=== PATIENT | female | born 1965 | race Caucasian/White ===

== ENCOUNTER 2021-01-29 08:11 | Day surgery (SDC) | payer OTHER ==
[~2021-01-29] VITALS: Ht 170.2 cm; Wt 81.8 kg
--- NOTE | ~2021-01-29 | HP ---
PATIENT: CAYLA AVILA MEDICAL RECORD: [id number] ACCOUNT: [id number] LOCATION:[facility] : 65 ADMISSION DATE: 01/29/21 PCP: KEVIN TORRES HISTORY AND PHYSICAL EXAMINATION CHIEF COMPLAINT: Iron-deficiency anemia. HISTORY OF PRESENT ILLNESS: The patient has arteriovenous malformation of the sigmoid colon. I have been asked to go and ablate this. The patient has noted some bright red blood per rectum. ALLERGIES: No known drug allergies. HOME MEDICATIONS: Have been reviewed. PAST MEDICAL AND SURGICAL HISTORY: Hypercholesterolemia, gastroesophageal reflux, rheumatoid arthritis, hypertension, COPD. SOCIAL HISTORY: Nonsmoker. PHYSICAL EXAMINATION: GENERAL: The patient does not appear acutely ill. She does appear chronically ill. VITAL SIGNS: Reviewed. EARS: External ears appear normal. EYES: Extraocular movements are intact. NECK: Trachea is midline. CHEST: No intercostal retractions. PULMONARY: Nonlabored. No stridor. IMPRESSION: Bleeding arteriovenous malformation of the sigmoid colon. PLAN: Colonoscopy with argon plasma coagulation therapy to the arteriovenous malformation. TRANSINT:[id number] Voice Confirmation ID: [id number] DOCUMENT ID: [id number] SHERYL OLIVAS MD CC: JEFF MART MD and KEVIN TORRES MD [id number] DICTATION DATE: 01/29/21 1044 CHIEF STRATEGY OFFICER: 01/29/21 1057 REG [facility] [address] [place] [address]
--- NOTE | ~2021-01-29 | OP ---
PATIENT NAME: CAYLA AVILA MEDICAL RECORD: [id number] :65 LOCATION:D.OPS ADMISSION DATE: SURGEON: SHERYL OLIVAS MD DATE OF OPERATION: 01/29/2021 PREOPERATIVE DIAGNOSES: 1. Iron deficiency anemia. 2. Arteriovenous malformations of the colon. POSTOPERATIVE DIAGNOSES: 1. Iron deficiency anemia. 2. Arteriovenous malformations of the colon. PROCEDURE: 1. Total colonoscopy to cecum. 2. Argon plasma coagulation ablation of arteriovenous malformation. SURGEON: Sheryl Olivas MD JAMB CUTTER: None. BLOOD LOSS: Minimal. ANESTHESIA: IV sedation. COMPLICATIONS: None. The risks, possible complications, and alternatives of the procedure were explained to the patient. She elects to proceed. ENDOSCOPIC COURSE: The patient was conveyed to the endoscopy suite electively on 01/29/2021. IV sedation was induced by the anesthesia staff. The patient was placed in the Pollard position. Digital rectal examination was performed. A colonoscope was inserted through the anus. It was easily advanced to the cecum. The prep was adequate. I slowly withdrew the endoscope. The pullback was greater than 13-minute pullback. Some erythematous areas which might be consistent with arteriovenous malformations were noted in the sigmoid colon. These were ablated with the argon plasma equal opportunity counselor utilizing the right colon setting in the forced mode. A retroflexed view was obtained in the rectum. There was a large anal papilla, which was ablated with the argon plasma equal opportunity counselor. I then unretroflexed the scope and removed it under direct vision. There is no need for the patient to see me in the office as no biopsies were obtained. If she develops new arteriovenous malformations I will be happy to see her to ablate these as well. TRANSINT:[id number] Voice Confirmation ID: [id number] DOCUMENT ID: [id number] OPERATIVE REPORT [id number] CAYLA AVILA SHERYL OLIVAS MD CC: JEFF MART MD and KEVIN TORRES MD [id number] DICTATION DATE: 01/29/21 1114 NURSE DISCHARGE PLANNER: 01/29/21 1152 REG [facility] [address] [place] [address]
[2021-01-29 08:45] LABS: HEMATOCRIT 39.4 % (36.0-48.0); HEMOGLOBIN 13.1 g/dL (12-16); IMMATURE GRANULOCYTES 0.7 % (0-5); LYMPHOCYTE ABS# 1.82 10x3/uL (1.18-3.74); LYMPHOCYTES 30.1 % (15-50); MCH 27.4 pg (26.0-34.0); MCHC 33.2 g/dL (31.0-37.0); MCV 82.4 fL (80.0-100.0); MEAN PLATELET VOLUME 9.5 fL (7.4-10.4); MONOCYTES 7.3 % (2-11); NEUTROPHIL ABS# 3.39 10x3/uL (1.56-6.13); NEUTROPHILS 55.9 % (40-80); PLATELET COUNT 225 10x3/uL (130-400); RBC 4.78 10x6/uL (4.00-5.40); RDW 13.1 % (11.5-14.5); WBC 6.1 10x3/uL (4.8-10.8)
[2021-01-29 08:58] LABS: ANION GAP 11.6 mmol/L (8-16); BILIRUBIN - TOTAL 0.49 mg/dL (0.2-1.3); CREATININE - SERUM 0.9 mg/dL (0.6-1.3); POTASSIUM - SERUM 3.6 mmol/L (3.5-5.1); PROTEIN - SERUM 7.7 g/dL (6.4-8.2)
[2021-01-29] MEDS ORDERED: LISINOPRIL20 MG PO (09:20)
[2021-01-29] MEDS ORDERED: PRAVACHOL20 MG PO (09:20)
[2021-01-29] MEDS ORDERED: PAXIL40 MG PO (09:21)
[2021-01-29] MEDS ORDERED: PEPCID40 MG PO (09:21)
[2021-01-29] MEDS ORDERED: METFORMIN HCL500 M1 PO (09:21)
[2021-01-29] MEDS ORDERED: FERROUS SULFAT325 MG PO (09:22)
[2021-01-29] MEDS ORDERED: ATARAX 25 MG TA25 MG PO (09:22)
[2021-01-29 09:28] VITALS: BP 121/78; Ht 170.2 cm; Wt 81.8 kg
--- NOTE | 2021-01-29 10:12 | NUR ---
DR RAMÍREZ NOTIFIED AND REVIEWED PT'S BEHAVIOR AND ASSESSMET. PT IS LOW RISK. RESOURCES GIVEN AND SHE VERBALIZES UNDERSTANDING.
--- NOTE | 2021-01-29 15:51 | NUR ---
1215 IV DC'ED WITH CATH INTACT BY Yonis DARBY R.N. PT DRESSING. Hank VINCENT R.N. 1225 PROVIDED WITH D/C INFORMATION INCLUDING MED REC, RX, & [facility] POST ENDOSCOPY D/C INSTRUCTIONS BY Yonis DARBY R.N. TO PRIVATE CAR PER STAFF. HOME WITH [employer]. Hank VINCENT R.N.
== END 2021-01-29 12:25 | disposition home or self-care (01) ==
LOC: D.OPS 08:11
PROVIDERS: Anesthesiology; ATTEND Surgery
DX: D50.9 Iron deficiency anemia, unspecified (principal); Q27.33 Arteriovenous malformation of digestive system vessel; E78.5 Hyperlipidemia, unspecified; K21.9 Gastro-esophageal reflux disease without esophagitis; I10 Essential (primary) hypertension; J44.9 Chronic obstructive pulmonary disease, unspecified; I99.8 Other disorder of circulatory system